=== PATIENT | male | born 1985 | race African-American/Black ===

== ENCOUNTER 2020-09-18 04:21 | Day surgery (SDC) | payer OTHER ==
[2020-09-17 12:15] VITALS: BMI 28.1
[2020-09-18] MEDS ORDERED: DEXAMETHASONE SOD PHOSPHATE/PF 10 MG/ML SDV ONE (07:26)
[2020-09-18] MEDS ORDERED: ROPIVACAINE HCL 0.5% 30ML VIAL ONE (07:27)
[2020-09-18] MEDS ORDERED: MIDAZOLAM HCL 2 MG/2 ML SINGLE DOSE VIAL ONE ×3 (07:29→07:32)
[2020-09-18] MEDS ORDERED: PROPOFOL 20 ML ONE (07:31)
[2020-09-18] MEDS ORDERED: ceFAZolin SODIUM 1 GM VIAL IVPB ONE (08:10)
[2020-09-18] MEDS ORDERED: oxyCODONE HCL 5 MG TABLET PO PRN (08:14)
[2020-09-18] MEDS ORDERED: ONDANSETRON 4 MG/2 ML VIAL IVPUSH PRN (08:14)
[2020-09-18] MEDS ORDERED: LACTATED RINGERS SOLUTION 1,000 ML IV SCH (08:15)
[2020-09-18] MEDS ORDERED: DEXAMETHASONE SOD PHOSPHATE 4 MG/1 ML VIAL ONE (08:47)
[2020-09-18] MEDS ORDERED: KETOROLAC TROMETHAMINE 30 MG/1 ML VIAL ONE (08:47)
[2020-09-18] MEDS ORDERED: ONDANSETRON 4 MG/2 ML VIAL ONE (08:47)
[2020-09-18] MEDS ORDERED: LABETALOL HCL 5 MG/1 ML (100MG/20 ML VIAL) ONE (08:47)
[2020-09-18] MEDS ORDERED: ceFAZolin SODIUM 1 GM VIAL ONE (08:47)
[2020-09-18 10:55] VITALS: BP 150/90; PULSE 78; TEMP 97
== END 2020-09-18 12:17 | disposition home or self-care (01) ==
LOC: JASU-SURG 04:21
PROVIDERS: ATTEND Orthopaedic Surgery
PROC: 0RQK4ZZ Repair Left Shoulder Joint, Percutaneous Endoscopic Approach (ICD-10-PCS; principal; 2020-09-18 08:00)
DX: M24.112 Other articular cartilage disorders, left shoulder (principal)
CPT/HCPCS: 88304-TC; 94760